=== PATIENT | male | born 1950 | race Caucasian/White ===

== ENCOUNTER 2019-10-12 10:31 | Emergency (ER) | payer MEDICARE, OTHER ==
[~2019-10-12] VITALS: Ht 182.9 cm; Wt 103.4 kg
[2019-10-12] MEDS ORDERED: MELO7.5T12 PO (14:23)
[2019-10-12 14:41] VITALS: BP 135/93
== END 2019-10-12 14:48 | disposition home or self-care (01) ==
LOC: ER 10:33
DX: S63.502A Unspecified sprain of left wrist, initial encounter (principal); S00.83XA Contusion of other part of head, initial encounter; S09.90XA Unspecified injury of head, initial encounter; Z87.891 Personal history of nicotine dependence; Z79.899 Other long term (current) drug therapy; V19.9XXA Pedal cyclist (driver) (passenger) injured in unspecified traffic accident, initial encounter; Y93.89 Activity, other specified; Y92.410 Unspecified street and highway as the place of occurrence of the external cause; Y99.8 Other external cause status
CPT/HCPCS: 29125; 70450; 70486; 73110; 99284

== ENCOUNTER 2019-10-14 11:20 | Emergency (ER) | payer MEDICARE, OTHER ==
[~2019-10-14] VITALS: Ht 182.9 cm; Wt 94.0 kg
[~2019-10-14 11:20] MED LIST: MELO7.5T12 PO
[2019-10-14 11:31] VITALS: BP 132/82
== END 2019-10-14 13:41 | disposition home or self-care (01) ==
LOC: ER 11:21
DX: S20.211A Contusion of right front wall of thorax, initial encounter (principal); M25.532 Pain in left wrist; Z79.899 Other long term (current) drug therapy; X50.1XXA Overexertion from prolonged static or awkward postures, initial encounter; Y93.89 Activity, other specified; Y92.89 Other specified places as the place of occurrence of the external cause; Y99.8 Other external cause status
CPT/HCPCS: 71045; 99284

== ENCOUNTER 2021-03-12 03:03 | Emergency (ER) | payer OTHER ==
[~2021-03-12] VITALS: Ht 177.8 cm; Wt 98.6 kg
[~2021-03-12 03:03] MED LIST changes: +AMOX-580 PO; +BUPR300T86 PO; +HYDR-3972 PO; +LOSA25TA41 PO; -MELO7.5T12 PO; +PANT40TA54 PO; +ROSU40TA22 PO; +UMEC1DIS INH
[2021-03-12] MEDS ORDERED: ondansetron/PF 4mg/2ml inj IV ONE (04:20)
[2021-03-12] MEDS ORDERED: morphine 4 MG/ML inj SYRINge IV ONE (04:20)
[2021-03-12] MEDS ORDERED: normal saline 1000ML IV soln IVB ONE (04:20)
[2021-03-12] MEDS ORDERED: ketorolac trometh. 30mg/ml inj. IV ONE (04:20)
[2021-03-12 04:35] LABS: LYMPHOCYTES # (AUTO) 1.2 X10'3 (1.1-4.8)
[2021-03-12 04:37] LABS: BASOPHILS # (AUTO) 0.1 X10'3 (0-0.2); BASOPHILS % (AUTO) 0.7 % (0-1); EOSINOPHILS # (AUTO) 0.2 X10'3 (0-0.9); HEMATOCRIT 35.1 % (42.0-52.0); HEMOGLOBIN 11.7 g/dl (14.0-17.9); LYMPHOCYTES % (AUTO) 13.7 % (21-51); MEAN CORPUSCULAR HEMOGLOBIN 30.9 PG (27.0-31.0); MEAN CORPUSCULAR HGB CONC 33.3 g/dL (33.0-36.5); MEAN CORPUSCULAR VOLUME 92.7 FL (78-98); MEAN PLATELET VOLUME 6.5 FL (7.4-10.4); MONOCYTES # (AUTO) 0.9 X10'3 (0-0.9); MONOCYTES % (AUTO) 10.6 % (2-12); NEUTROPHILS # (AUTO) 6.3 X10'3 (1.8-7.7); PLATELET COUNT 635 X10'3 (140-440); RED BLOOD COUNT 3.79 X10'6 (4.70-6.10); RED CELL DISTRIBUTION WIDTH 14.4 % (11.5-14.5); WHITE BLOOD COUNT 8.6 X10'3 (4.5-11.0)
[2021-03-12 04:44] LABS: ALANINE AMINOTRANSFERASE 34 U/L (12-78); ALBUMIN/GLOBULIN RATIO 0.8 (1.1-1.5); ALKALINE PHOSPHATASE 75 IU/L (46-116); ANION GAP 9 (8-16); ASPARTATE AMINO TRANSFERASE 23 U/L (10-37); BILIRUBIN,TOTAL 0.4 MG/DL (0.1-1.0); BLOOD UREA NITROGEN 13 MG/DL (7-18); BUN/CREATININE RATIO 12.3 (5.4-32.0); C-REACTIVE PROTEIN 1.52 MG/DL (0.0-0.5); CALCIUM 8.6 MG/DL (8.5-10.1); CHLORIDE 106 MMOL/L (99-107); CREATININE 1.06 MG/DL (0.60-1.10); GLUCOSE 107 MG/DL (70-104); POTASSIUM 3.3 MMOL/L (3.5-5.1); SODIUM 139 MMOL/L (135-145); TOTAL CARBON DIOXIDE 24.1 MMOL/L (24-32); TOTAL PROTEIN 6.7 G/DL (6.4-8.2); eGFR 69 ML/MIN
[2021-03-12] MEDS ORDERED: OXYC-658 PO (05:09)
[2021-03-12] MEDS ORDERED: ASPI-1264 PO (05:09)
[2021-03-12] MEDS ORDERED: LOSA25TA41 PO (05:09)
[2021-03-12] MEDS ORDERED: fentaNYL/PF 50MCG/1 ML 2ML syringe IV ONE (06:40)
[2021-03-12] MEDS ORDERED: LIDOcaine 1% 30ml preserv. free vial IJ STA (07:16)
[2021-03-12 08:24] LABS: APPEARANCE,SYNOVIAL FLUID CLOUDY; COLOR,SYNOVIAL FLUID YELLOW; SYN RBC 18750 /CU MM (0); SYN WBC 50 /CU MM (0-200)
[2021-03-12 09:20] VITALS: BP 151/85
== END 2021-03-12 09:26 | disposition home or self-care (01) ==
LOC: ER 03:03
DX: M25.562 Pain in left knee (principal); Z96.652 Presence of left artificial knee joint; I25.2 Old myocardial infarction; J44.9 Chronic obstructive pulmonary disease, unspecified; Z85.9 Personal history of malignant neoplasm, unspecified; Z86.19 Personal history of other infectious and parasitic diseases; Z79.82 Long term (current) use of aspirin; Z79.899 Other long term (current) drug therapy
CPT/HCPCS: 36415; 80053; 84145; 85025; 85651; 86140; 87070; 89051; 96361; 96374; 96375; 99284; J1885; J2270; J2405; J3010; J7030

== ENCOUNTER 2025-01-27 05:49 | Day surgery (SDC) | payer BC ==
[2025-01-26 15:25] LABS: BASOPHILS # (AUTO) 0.1 X10'3 (0-0.2); BASOPHILS % (AUTO) 0.8 % (0-1); EOSINOPHILS # (AUTO) 0.2 X10'3 (0-0.9); HEMATOCRIT 42.2 % (42.0-52.0); HEMOGLOBIN 14.1 g/dl (14.0-17.9); LYMPHOCYTES # (AUTO) 1.5 X10'3 (1.1-4.8); LYMPHOCYTES % (AUTO) 15.9 % (21-51); MEAN CORPUSCULAR HEMOGLOBIN 31.2 PG (27.0-31.0); MEAN CORPUSCULAR HGB CONC 33.5 g/dL (33.0-36.5); MEAN CORPUSCULAR VOLUME 93.3 FL (78-98); MEAN PLATELET VOLUME 7.2 FL (7.4-10.4); MONOCYTES # (AUTO) 0.6 X10'3 (0-0.9); MONOCYTES % (AUTO) 6.5 % (2-12); NEUTROPHILS # (AUTO) 7.1 X10'3 (1.8-7.7); NEUTROPHILS % (AUTO) 74.8 % (42-75); PLATELET COUNT 290 X10'3 (140-440); RED BLOOD COUNT 4.52 X10'6 (4.70-6.10); RED CELL DISTRIBUTION WIDTH 13.8 % (11.5-14.5); WHITE BLOOD COUNT 9.5 X10'3 (4.5-11.0)
[2025-01-26 15:35] LABS: ALBUMIN 3.7 G/DL (3.4-5.0); ANION GAP 9 (8-16); BLOOD UREA NITROGEN 16 MG/DL (7-18); BUN/CREATININE RATIO 15.1 (10.0-20.0); CALCIUM 8.8 MG/DL (8.5-10.1); CHLORIDE 111 MMOL/L (99-107); CREATININE 1.06 MG/DL (0.60-1.10); GLUCOSE 89 MG/DL (70-104); POTASSIUM 3.5 MMOL/L (3.5-5.1); SODIUM 144 MMOL/L (135-145); TOTAL CARBON DIOXIDE 24.5 MMOL/L (24-32); eGFR 68 ML/MIN
[2025-01-26 15:39] LABS: APTT 25 SECONDS (22-32); INR 1.1 INR
[2025-01-26 15:51] LABS: PROTHROMBIN TIME 10.9 SECONDS (9.0-12.0)
[~2025-01-27] VITALS: Ht 177.8 cm; Wt 95.5 kg
[2025-01-27] VITALS (13 sets, daily range): BP systolic 91–126; BP diastolic 46–68; PULSE 55–69; RESP 12–17; TEMP 97.5; O2SAT 95–99
[~2025-01-27 05:49] MED LIST changes: +ASPI-1264 PO; +BUPR-480 PO; -BUPR300T86 PO; -HYDR-3972 PO; +OXYC-658 PO; -ROSU40TA22 PO; +ROSU40TA89 PO
--- NOTE | 2025-01-27 06:34 | ELECTROCARDIOGRAPH REPORT ---
[facility] Test Date: 2025-01-27 Test Time: 06:30:53 Pat Name: BHARATH ULLOA Department: [facility] Patient ID: [id number] Room: Gender: M Table Attendant: JACINTO : 1950 Requested By: SKYLAR BURKS Order Number: [id number] Reading MD: Dr. YANN Burks Measurements Intervals [place] Rate: 51 P: 22 IA: 248 QRS: -30 QRSD: 97 T: 47 QT: 450 QTc: 415 Interpretive Statements Sinus rhythm Prolonged IA interval Inferior infarct, old Electronically Signed On 01-27-2025 17:37:[address] YANN Burks Please click the below link to view image of tracing.
[2025-01-27] MEDS ORDERED: VALA500T41 PO (06:43)
[2025-01-27] MEDS ORDERED: SEMA0.258 (06:43)
[2025-01-27] MEDS ORDERED: BUDE10.7 (06:43)
[2025-01-27] MEDS ORDERED: DEXL30CA9 PO (06:43)
[2025-01-27] MEDS ORDERED: TRAZ-256 PO (06:43)
[2025-01-27] MEDS ORDERED: TADA10TA14 PO (06:43)
[2025-01-27] MEDS ORDERED: NITR0.4T48 SL (06:48)
[2025-01-27] MEDS ORDERED: ASPI-611 PO (06:48)
[2025-01-27] MEDS ORDERED: LEVO5TAB29 PO (06:48)
[2025-01-27] MEDS ORDERED: MULT-1172 PO (06:50)
[2025-01-27] MEDS ORDERED: CALC600T14 PO (06:50)
[2025-01-27] MEDS: LORazepam 0.5 MG tablet PO PRN (07:22)
[2025-01-27] MEDS: normal saline 1,000 ML IV SCH (07:22)
[2025-01-27] MEDS: diphenhydrAMINE 25mg capsule PO PRN (07:22)
[2025-01-27] MEDS ORDERED: fentaNYL/PF 50MCG/1 ML 2ML syringe ONE (07:42)
[2025-01-27] MEDS ORDERED: verapamil 2.5 mg/ml inj IV ONE (07:42)
[2025-01-27] MEDS ORDERED: LIDOcaine 1% (10mg/ml) 2ml vial ONE (07:42)
[2025-01-27] MEDS ORDERED: iohexol 350 MG/ML 50ML vial IV ONE (07:42)
[2025-01-27] MEDS ORDERED: midazolam 1 mg/ML 2ml injection ONE (07:42)
[2025-01-27] MEDS ORDERED: heparin 1,000unit/ml 10ml vial 10 ML ONE (07:42)
[2025-01-27] MEDS ORDERED: iohexol 350MG/ML 100ml bottle IV ONE ×2 (07:42→08:54)
[2025-01-27] MEDS ORDERED: nitroGLYCERIN 500mcg/5mL D5W 5 ML IV ONE (07:43)
[2025-01-27] MEDS ORDERED: LIDOcaine 1% 30ml preserv. free vial ONE (08:28)
[2025-01-27] MEDS ORDERED: hydrALAZINE 20mg/ml inj. ONE (09:18)
[2025-01-27] MEDS: HYDROcodone/acetaminophen 10/325mg tab PO PRN (10:11)
[2025-01-27] MEDS ORDERED: CARV-49 PO (11:36)
[2025-01-27] MEDS ORDERED: CLOP75TA34 PO (11:36)
--- NOTE | 2025-01-28 07:20 | CARDIOLOGY REPORT ---
DATE OF SERVICE: 01/27/2025 DICTATING PHYSICIAN: YANN Burks MD CARDIAC CATHETERIZATION GENDER: Male. AGE: 74 years. HEIGHT: 178 cm. WEIGHT: 95.5 kilos. BODY SURFACE AREA: 2.14 m2. PRIMARY PHYSICIAN: Wai Lynch MD AUTHORS MOTIVATIONAL: YANN Burks MD INDICATION: The patient is a 74-year-old male with a history of hypertension, hyperlipidemia, and CAD, prior history of coronary artery disease with exertional fatigue and shortness of breath. He does have a small AAA. The patient's history of CAD dates back to 08/2011 at [facility] when he had a PTCA stenting of proximal LAD x 2. The patient had been having exertional fatigue, shortness of breath with chest pain episode. After discussing risks, benefits and alternative options, he preferred to proceed with coronary angiography. Risks, benefits, and alternative options were discussed and informed consent obtained. PROCEDURE TECHNIQUE: Initially, right radial access was tight and access was not successful, hence changed to right femoral approach, 6-Andorran femoral artery sheath subsequently because the aortoiliofemoral tortuosity changed to 7/45 sheath. The patient because of the dilated aorta, it was difficult to find a catheter which would engage the left main coronary artery. This has also made More difficult by his iliofemoral tortuosity. Initially, JL3, JL4, JL4.5, XP LAD4 and AL1 and AL2 did not engage the left main ostium; Subsequently seven Andorran long 45 sheath was used. After that JL4 was able to engage it with the long sheath. The patient does have a short left main. Post-procedure access site hemostasis. The patient tolerated the procedure well. Complication, none. PROCEDURES DONE: * Ultrasound-guided right femoral artery visualization and access. * Right femoral arteriogram. * Perclose closure of the right femoral artery access site. * Left heart catheterization. * Left LVG. * Coronary cineangiography. Conscious sedation of 75 minutes. FINDINGS: HEMODYNAMICS: Aortic systolic 161, diastolic 72, mean 98 mmHg. LVEF of 18 mmHg. There is no significant gradient across the aortic valve. LEFT VENTRICULOGRAM: Overall, left ventricular systolic function normal with an LV ejection fraction of 65-70%. CORONARY CINEANGIOGRAPHY: Left main coronary artery is a large caliber with short vessel arising from left aortic sinus, difficult to engage and engaged with JL4 catheter from right femoral approach. Stent in the LAD is widely patent. LAD is a medium caliber arising at the bifurcation of left main coronary artery and courses through the anterior intraventricular groove and ends by wrapping around the apex. Diagonal 1 and 2 are 2 mm caliber with mild luminal irregularities, which divides LAD, courses through the anterior intraventricular groove and ends 10-20% narrowing. Circumflex artery is a medium caliber arising at the bifurcation of left main coronary artery and courses through the left AV groove in the mid portion. There is a mismatch between the proximal ectatic vessel and distal normal sized coronary. There appears to be about 60% narrowing in the middle of the circumflex artery. OM1 is 2.75 mm caliber vessel with minimal luminal irregularities. OM2 and 3 are 2 mm caliber vessel with mild luminal irregularities. OM 4 is 2.25 mm caliber vessel with mild luminal irregularities. left AV groove with small OM branches. Mid circumflex is about 60-70% narrowing. Right coronary artery is a medium caliber codominant vessel arising right aortic sinus and courses through the right AV groove, and ends by continuing as PDA.. Proximal RCA has about areas of 30% narrowing. IMPRESSION: A 74-year-old male with LVEF of 65-70%. LVEF of 18 mmHg. There is no significant gradient across the aortic valve. Left main normal. LAD stent widely patent. LAD with areas of 10-20% narrowing. Right circumflex 60-70% narrowing. RCA approximately 30% narrowing. RECOMMENDATIONS: At this time, the patient was recommended optimal medical therapy with beta shelby, nitrates, statins and aspirin. If the patient continues to have worsening symptoms, he could be evaluated for circumflex, coronary stenting in future. YANN Burks MD TID: [id number] RECEIPT: [id number] OMAR/MENDOZA/ANICETO cc: Wai Lynch MD [facility]
== END 2025-01-27 15:00 | disposition home or self-care (01) ==
LOC: SSTAY O 05:49
PROVIDERS: ATTEND Internal Medicine Cardiovascular Disease
DX: I25.10 Atherosclerotic heart disease of native coronary artery without angina pectoris (principal); E78.5 Hyperlipidemia, unspecified; I10 Essential (primary) hypertension; Z79.01 Long term (current) use of anticoagulants
CPT/HCPCS: 36415; 80048; 85025; 85610; 85730; 93005; 93458; 99152; 99153; C1760; J0360; J1644; J2003; J2250; J3010; J3490; J7030; Q0163; Q9967; 76937; A6258; C1725; C1751; C1894

== ENCOUNTER 2025-02-10 06:14 | Day surgery (SDC) | payer BC ==
[2025-02-09 14:35] LABS: BASOPHILS % (AUTO) 0.6 % (0-1); EOSINOPHILS # (AUTO) 0.1 X10'3 (0-0.9); EOSINOPHILS % (AUTO) 2.2 % (0-6); HEMOGLOBIN 14.5 g/dl (14.0-17.9); LYMPHOCYTES # (AUTO) 1.8 X10'3 (1.1-4.8); LYMPHOCYTES % (AUTO) 29.9 % (21-51); MEAN CORPUSCULAR HEMOGLOBIN 32.3 PG (27.0-31.0); MEAN CORPUSCULAR HGB CONC 34.4 g/dL (33.0-36.5); MEAN CORPUSCULAR VOLUME 93.7 FL (78-98); MEAN PLATELET VOLUME 7.1 FL (7.4-10.4); MONOCYTES # (AUTO) 0.5 X10'3 (0-0.9); MONOCYTES % (AUTO) 8.9 % (2-12); NEUTROPHILS # (AUTO) 3.5 X10'3 (1.8-7.7); NEUTROPHILS % (AUTO) 58.4 % (42-75); PLATELET COUNT 274 X10'3 (140-440); RED BLOOD COUNT 4.49 X10'6 (4.70-6.10)
[2025-02-09 14:40] LABS: ALBUMIN 3.6 G/DL (3.4-5.0); ANION GAP 8 (8-16); BLOOD UREA NITROGEN 14 MG/DL (7-18); CALCIUM 8.7 MG/DL (8.5-10.1); CHLORIDE 106 MMOL/L (99-107); GLUCOSE 98 MG/DL (70-104); POTASSIUM 4.4 MMOL/L (3.5-5.1); SODIUM 143 MMOL/L (135-145); TOTAL CARBON DIOXIDE 28.9 MMOL/L (24-32); eGFR 73 ML/MIN
[2025-02-09 14:42] LABS: APTT 27 SECONDS (22-32); INR 1.1 INR; PROTHROMBIN TIME 10.8 SECONDS (9.0-12.0)
[2025-02-10] VITALS (15 sets, daily range): BP systolic 121–163; BP diastolic 71–92; PULSE 58–66; RESP 12–18; TEMP 97.6; O2SAT 59–98
[~2025-02-10] VITALS: Ht 177.8 cm; Wt 95.2 kg
[~2025-02-10 06:14] MED LIST changes: -AMOX-580 PO; -ASPI-1264 PO; +ASPI-611 PO; +BUDE10.7; +CALC600T14 PO; +CARV-49 PO; +CLOP75TA34 PO; +DEXL30CA9 PO; +LEVO5TAB29 PO; +MULT-1172 PO; +NITR0.4T48 SL; -OXYC-658 PO; -PANT40TA54 PO; +SEMA0.258; +TADA10TA14 PO; +TRAZ-256 PO; -UMEC1DIS INH; +VALA500T41 PO
[2025-02-10] MEDS ORDERED: CLOP-32 PO (06:36)
[2025-02-10] MEDS ORDERED: CARV-49 PO (06:36)
[2025-02-10] MEDS ORDERED: CALC200T PO (06:47)
--- NOTE | 2025-02-10 06:50 | ELECTROCARDIOGRAPH REPORT ---
[facility] Test Date: 2025-02-10 Test Time: 06:47:11 Pat Name: BHARATH ULLOA Department: [facility] Patient ID: [facility]-[id number] Room: Gender: M Policy Writer Sales: OLIVIA : 1950 Requested By: SKYLAR BAILEY Order Number: [id number] Reading MD: Dr. Johan Linder Measurements Intervals [place] Rate: 58 P: 22 PA: 250 QRS: -19 QRSD: 93 T: 63 QT: 406 QTc: 399 Interpretive Statements Sinus rhythm Prolonged PA interval Borderline left axis deviation Electronically Signed On 02-10-2025 11:40:[address] Johan Linder Please click the below link to view image of tracing.
[2025-02-10] MEDS ORDERED: SEMA0.253 SQ (06:52)
[2025-02-10] MEDS: LORazepam 0.5 MG tablet PO PRN (07:24)
[2025-02-10] MEDS: diphenhydrAMINE 25mg capsule PO PRN (07:25)
[2025-02-10] MEDS: normal saline 1,000 ML IV SCH (07:25)
[2025-02-10] MEDS ORDERED: heparin 25,000 UNIT/250ml bag 250 ML IV ONE (07:37)
[2025-02-10] MEDS ORDERED: LIDOcaine 1% (10mg/ml) 2ml vial ONE (07:37)
[2025-02-10] MEDS ORDERED: midazolam 1 mg/ML 2ml injection ONE (07:37)
[2025-02-10] MEDS ORDERED: heparin 1,000unit/ml 10ml vial 10 ML ONE ×2 (07:37→09:43)
[2025-02-10] MEDS ORDERED: fentaNYL/PF 50MCG/1 ML 2ML syringe ONE (07:37)
[2025-02-10] MEDS ORDERED: verapamil 2.5 mg/ml inj IV ONE (07:37)
[2025-02-10] MEDS ORDERED: iohexol 350MG/ML 100ml bottle IV ONE (07:38)
[2025-02-10] MEDS ORDERED: nitroGLYCERIN 500mcg/5mL D5W 5 ML IV ONE (07:38)
[2025-02-10] MEDS ORDERED: clopidogrel 300mg tablet ONE ×2 (08:55→09:01)
[2025-02-10] MEDS ORDERED: heparin 1,000 UNITS/NS 500ml 500 ML ONE (09:22)
[2025-02-10] MEDS ORDERED: aspirin 325mg tablet ONE (09:39)
--- NOTE | 2025-02-10 10:12 | ELECTROCARDIOGRAPH REPORT ---
[facility] Test Date: 2025-02-10 Test Time: 10:08:45 Pat Name: BHARATH ULLOA Department: [facility] Patient ID: [facility]-[id number] Room: Gender: M Oil Transport Driver: OLIVIA : 1950 Requested By: SKYLAR BAILEY Order Number: [id number] Reading MD: Dr. Johan Linder Measurements Intervals [place] Rate: 59 P: 11 MO: 241 QRS: -34 QRSD: 95 T: 60 QT: 415 QTc: 412 Interpretive Statements Sinus rhythm Prolonged [place] interval Left axis deviation Electronically Signed On 02-10-2025 11:41:[address] Johan Linder Please click the below link to view image of tracing.
[2025-02-10] MEDS ORDERED: normal saline 1000ml 1,000 ML IV SCH (10:25)
--- NOTE | 2025-02-11 04:22 | CARDIOLOGY REPORT ---
DATE OF SERVICE: 02/10/2025 DICTATING PHYSICIAN: YANN Burks MD CORONARY INTERVENTION REPORT PRIMARY PHYSICIAN: Wai Lynch MD SAFETY OFFICER: YANN Burks MD GENDER: Male. AGE: 74. HEIGHT: 178 cm. WEIGHT: 95.2 kilos. BODY SURFACE AREA: 2.12 m2. INDICATION: The patient is a 74-year-old male with history of hypertension, hyperlipidemia, CAD, prior history of coronary artery stenting. The patient had PTCA stenting of the proximal LAD in the [facility] in [place] x 2 back in 08/2011. He was having exertional fatigue and shortness of breath and underwent coronary angiography on 01/27/2025 and reported to have mid circumflex narrowing close to 70%, which was managed medically, but the patient continued to have ongoing anginal episodes and because of his insurance did not qualify for EE and hence the patient wanted to proceed with coronary stenting. Risks, benefits, and alternative options were discussed, informed consent obtained. Because of his angulation, it was difficult to engage a left main from radial approach and also he had a very tortuous iliofemoral system and similar problem even with a 7/45 sheath and hence, this was decided to go from the left radial approach. PROCEDURE TECHNIQU: The patient underwent ultrasound-guided left radial artery visualization and access. A 6-Swedish sheath posterior access setting was redirected left radial branch. The patient tolerated the procedure well. COMPLICATIONS: None. FINDINGS: HEMODYNAMICS: Aortic systolic 132, diastolic 72, mean 101 mmHg. After adequate heparinization, PTCA stenting was carried out. PROCEDURES DONE: * Ultrasound-guided left radial artery with visualization and access. * Angioplasty of the mid circumflex artery. * Angioplasty of the OM1 ostium. * PTCA stenting of the mid circumflex. * Conscious sedation time of 75 minutes. PROCEDURE: Left main was engaged with left radial approach with XBC 4 guide without sidehole . both OM1 and the distal circumflex arteries were wired with PT2 wire. Mid circumflex was angioplastied with 2.25/12 NC balloon. Next, the lesion was stented with 2.7 x 15 Ben [place] at 10 followed by 14 atmospheric pressures. Subsequently, wire in the OM1 was drawn and re-crossed and OM1 ostium was angioplastied with 3/12 the semi compliant balloon with eight atmospheric pressure followed by 10 atmospheric pressures. Subsequently, attempts to post-dilate the stent with 3.25/12 noncompliant balloon were unsuccessful because of the tortuosity and the balloon would hit the proximal end of the stent. After few attempts it was decided to accept the results. IMPRESSION: A 74-year-old male with 70% mid circumflex lesion, successfully angioplastied with 2.75/15 Resolute Ben stent with 0 LILIBETH 3 flow. OM1 ostium was angioplastied. RECOMMENDATIONS: Diet, weight loss and exercise and uninterrupted aspirin and Plavix at least for one year. YANN Burks MD TID: [id number] RECEIPT: [id number] OMAR/MENDOZA/AV cc: Wai Lynch MD MTDD
== END 2025-02-10 16:00 | disposition home or self-care (01) ==
LOC: SSTAY O 06:14
PROVIDERS: ATTEND Internal Medicine Cardiovascular Disease
DX: I25.10 Atherosclerotic heart disease of native coronary artery without angina pectoris (principal); I10 Essential (primary) hypertension; E78.5 Hyperlipidemia, unspecified; F32.A Depression, unspecified; Z95.5 Presence of coronary angioplasty implant and graft; Z79.01 Long term (current) use of anticoagulants; Z98.890 Other specified postprocedural states; Z82.49 Family history of ischemic heart disease and other diseases of the circulatory system; Z79.899 Other long term (current) drug therapy
CPT/HCPCS: 36415; 80048; 85025; 85347; 85610; 85730; 92921; 93005; 99152; 99153; C1874; C9600; J1644; J2003; J2250; J3010; J3490; J7030; Q0163; Q9967; A6258; C1725; C1751; C1769; C1894